=== PATIENT | male | born 1960 | race Caucasian/White ===

== ENCOUNTER → 2018-01-04 | Outpatient (CLI) | payer OTHER ==
[~2018-01-04] MED LIST: ADULT LOW DOSE81 MG; ASPIRIN325 PO; FISH OIL 1,0001 EAC5; FISH OIL 1,0001 EAC5 PO; FLAX OIL1000 MG; FLAX SEED OIL1 EACH PO; HYOSCYAMINE0.375 M2 SUBLING; MULTIVITAMINS; MULTIVITAMINS1 EAC7 PO; NEURONTIN 300300 M1 PO; NORCO 5-325 TA1 EACH; NORCO 5-325 TA1 EACH PO; ROBAXIN 750 MG750 M1; TRILIPIX135 MG; TRILIPIX135 MG PO
== END ==
LOC: M.ULTRA 01-02 14:58
DX: K76.0 Fatty (change of) liver, not elsewhere classified (principal); K80.20 Calculus of gallbladder without cholecystitis without obstruction; S30.861A Insect bite (nonvenomous) of abdominal wall, initial encounter; Y93.89 Activity, other specified; Y92.89 Other specified places as the place of occurrence of the external cause; Y99.8 Other external cause status